=== PATIENT | female | born 1945 | race Caucasian/White ===

== ENCOUNTER → 2023-08-03 10:18 | Outpatient (REF) | payer MEDICARE, OTHER, SELFPAY ==
[2023-08-03 12:02] LABS: % Basophils 0.6 % (0-2); % Eosinophils 3.3 % (0-6); % Immature Granulocytes 0.2 % (0-0.5); % Monocytes 8.9 % (1.7-9.3); Absolute Eosinophils 0.2 10^3/uL (0-0.7); Absolute Lymphocytes 0.9 10^3/uL (1.2-3.4); Absolute Monocytes 0.6 10^3/uL (0.1-0.6); Absolute Neutrophils 4.6 10^3/uL (1.4-6.5); Hematocrit 42.8 % (37.0-47.0); Hemoglobin 13.8 g/dL (12.0-16.0); Mean Corp Hgb Conc. 32.2 g/dL (33.0-37.0); Mean Corpuscular Hgb 30.3 pg (27.0-31.0); Mean Corpuscular Volume 94.1 fL (81.0-99.0); Nucleated Red Blood Cells % 0 %; Platelet Count 230 10^3/uL (130-400); Red Blood Cell Count 4.55 10^6/uL (4.20-5.40); Red Cell Dist. Width 13.2 % (11.5-14.5); White Blood Cell Count 6.3 10^3/uL (4.8-10.8)
[2023-08-03 12:27] LABS: ALT (SGPT) 25 U/L (0-35); AST (SGOT) 23 U/L (14-36); Albumin 4.4 g/dl (3.5-5.0); Alkaline Phosphatase 109 U/L (38-126); Blood Urea Nitrogen 30 mg/dl (7-17); Calcium 9.5 mg/dl (8.4-10.2); Carbon Dioxide 31 mmol/L (22-30); Chloride 101 mmol/L (98-107); Glucose 87 mg/dl (70-99); HDL Cholesterol 92 mg/dl; LDL Cholesterol, Calculated 44 mg/dl; Potassium 4.6 mmol/L (3.5-5.1); Sodium 140 mmol/L (135-145); Total Bilirubin 0.6 mg/dl (0.2-1.3); Total Cholesterol 155 mg/dl (50-199); Total Protein 6.8 g/dl (6.3-8.2); Triglyceride 98 mg/dl (10-149); Very Low Density Lipoprotein 19 mg/dl (0-30); eGFR > 60.00
[2023-08-03 12:57] LABS: TSH 3.39 uIU/ml (0.47-4.68)
== END ==
LOC: HWLAB 10:18
PROVIDERS: ATTENDING PHYSICIAN Internal Medicine; REFERRING PHYSICIAN Urology
DX: I10 Essential (primary) hypertension (principal); E78.5 Hyperlipidemia, unspecified; R53.83 Other fatigue
CPT/HCPCS: 36415; 80053; 80061; 84443; 85025

== ENCOUNTER 2023-08-27 06:50 | Day surgery (SDC) | payer MEDICARE, OTHER, SELFPAY ==
[2023-08-27] VITALS (7 sets, daily range): BP systolic 12–137; BP diastolic 51–85
[2023-08-27 08:55] LABS: Urine Albumin Negative (Neg - Trace); Urine Bilirubin Negative (Negative); Urine Character Clear (Clear); Urine Color Yellow; Urine Glucose Negative (Negative); Urine Ketone Negative (Negative); Urine Leukocyte Trace (Negative); Urine Nitrite Negative (Negative); Urine Occult Blood Negative (Negative); Urine Specific Gravity 1.015 (<1.030); Urine Urobilinogen Negative (Neg - 1+)
[2023-08-27] MEDS: NORMOSOL-R 1000 IV (09:02)
[2023-08-27] MEDS: TYLENOL 1000 MG PO (09:02)
[2023-08-27 09:04] LABS: APTT 31.7 Sec (23.4-35.0); INR 1.08; PT 13.8 Sec (11.4-14.6)
[2023-08-27 09:19] LABS: Urine Amorphous Seen; Urine Granular Cast 0-2 /LPF (0); Urine Hyaline Cast 0-2 /LPF (0-2); Urine Mucus Many; Urine Squamous Cell >30 /LPF (Few)
[2023-08-27 09:22] LABS: Urine Red Blood Cell 0-2 /HPF (0-2)
== END 2023-08-27 12:32 | disposition home or self-care (01) ==
LOC: SDS 06:50
PROVIDERS: ATTENDING PHYSICIAN Urology
DX: T83.190A Other mechanical complication of urinary electronic stimulator device, initial encounter (principal); N39.41 Urge incontinence; Y83.1 Surgical operation with implant of artificial internal device as the cause of abnormal reaction of the patient, or of later complication, without mention of misadventure at the time of the procedure
CPT/HCPCS: 64590; 64561; 72170; 76000; 81003; 81015; 85610; 85730; 87086; 93005; C1767; C1778; C1787; L8681

== ENCOUNTER 2024-08-07 02:25 | Emergency (ER) | payer MEDICARE, OTHER, SELFPAY ==
[2024-08-07 02:29] VITALS: BP 130/56; BMI 33.0
[2024-08-07] MEDS: MOTRIN 400 MG PO (02:45)
--- NOTE | 2024-08-07 02:52 | ED.GENMED ---
History of Present Illness
General
Chief Complaint: Musculo-Skeletal Complaint
Source: patient and ambulance crew
Exam Limitations: none
Time Seen by Provider: 08/07/24 02:33
Nursing documentation reviewed up to this point in time: agreed with
History of Present Illness
History of Present Illness:
79-year-old female with history as documented presents to the ER for evaluation of left foot pain. Patient reports that she was moving a heavy bottle of laundry detergent from a shelf when it fell off onto her left foot. She says that she
immediately started to have swelling and pain in the left foot. Has had difficulty bearing weight which prompted her to call EMS to bring her to the hospital. She normally ambulates with a walker but she does have access to a wheelchair at home.
She denies any other injuries or complaints. Denies being on blood thinners. She did take Tylenol without improvement.
Past History
Past History
ED Past Medical History: GERD, HTN, Hypercholesterolemia and Other (Lumbar fracture)
ED Past Surgical History: Brain, Orthopedic and Tonsilectomy
Social History
Tobacco: Non-smoker
Alcohol: None
Drug: None
Living: alone
Review of Systems
Review of Systems
All Other Systems: ROS reviewed and negative except as documented in HPI and ROS
Musculoskeletal: Reports other (Foot pain)
Phy Exam
Physical Exam
Physical Exam:
General: Well appearing and non-toxic
HEENT: protecting airway
Neck: appears supple
CV: No evidence of cyanosis
Resp: No accessory muscle use
Abd: Non-distended
Extremities: Patient has swelling and bruising to the dorsum of the left foot as well as a minor abrasion on the dorsum of the foot; she has tenderness along the entire dorsum of the left foot; no tenderness along the fifth metatarsal, no tenderness
of the instep or calcaneus; no tenderness of the medial or lateral malleolus and reasonable range of motion of the left ankle; no tenderness in the calf or knee on the left; strong left DP pulse and PT pulse palpable
Neuro: Alert
Psych: Normal affect
Scores
Heart Failure Risk
Heart Failure Risk Score: Not Applicable
Heart Score for Chest Pain Patients
STEMI patient?: Not applicable
Withdrawal Assessment of Alcohol
Withdrawal Assessment Completed?: Not applicable
Course
Orders/Labs/Results
Orders:
Orders
08/07/24 02:33
Ice Pack-Treatment DIRECTED
Location: left foot
Ibuprofen [Motrin] 400 mg PO NOW STA
CR Foot - Left Min 3 Views Urgent
Comment:
Reason For Exam: midfoot pain s/p direct blow
08/07/24 02:50
Phillip Wrap Left-Treatment ONCE
Vital Signs
Initial and Last Documented VS:
Initial Vital Signs
Temp Pulse Resp BP Pulse Ox
36.7 C 88 16 130/56 99
08/07/24 02:29 08/07/24 02:29 08/07/24 02:29 08/07/24 02:29 08/07/24 02:29
Last Documented Vital Signs
Temp Pulse Resp BP Pulse Ox
36.7 C 88 16 130/56 99
08/07/24 02:29 08/07/24 02:29 08/07/24 02:29 08/07/24 02:29 08/07/24 02:29
MDM/Problems Addressed
Differential Diagnosis Includes:
Contusion, fracture
MDM/Problems Addressed:
79-year-old female presents for evaluation after dropping a bottle of laundry detergent on her left foot. She has pain and swelling and pain with weightbearing. Vitals and exam as above. X-ray of the foot reviewed by me shows no acute fracture.
Suspect likely foot contusion. Apply compression wrap, ice. Treat with Motrin. Trial ambulation and reassess.
*Radiology
Radiology exam reviewed: preliminary read by ED provider
*Pulse Oximetry
Patient hypoxic: no
*Critical Care Note
Total Time (30-74mins, 75-104mins- exclusive of procedures): Not Applicable
Data Reviewed
Source: patient and ambulance crew
ED Attending Note
-
Portions of this chart may have been created with voice recognition software.� Occasional wrong word or��sound alike� substitutions may have occurred due to the inherent limitations of voice recognition software.
Discharge Plan
Departure
Patient with high blood pressure during this ER visit?: No
Discharge Problem:
Contusion of foot, left
Instructions: Contusion
Prescriptions:
No Action
sertraline 100 MG tablet
200 mg PO DAILY
levothyroxine 50 MCG tablet
75 mcg PO DAILY AT 0700
losartan [Cozaar] 100 MG tablet
100 mg PO DAILY
atorvastatin [Lipitor] 10 MG tablet
10 mg PO DAILY
bupropion HCl 300 MG tablet extended release 24 hr
300 mg PO DAILY
cholecalciferol (vitamin D3) 1,000 UNITS tablet
1,000 units PO DAILY
omeprazole 40 MG capsule,delayed release(DR/EC)
20 mg PO HS
ropinirole 0.25 MG tablet
0.25 mg PO HS
multivitamin with folic acid [Tab-A-Emerita] 1 TABLET tablet
1 tab PO HS
Myrbetriq 25 MG tablet extended release 24 hr
50 mg PO HS
hydralazine 50 mg Tablet
50 mg PO BID
buspirone [BuSpar] 15 mg Tablet
15 mg PO BID
amlodipine 5 mg Tablet
5 mg PO DAILY
omeprazole 20 mg Capsule,Delayed Release(Dr/Ec)
20 mg PO DAILY
Referrals:
Agustin Amaya DPM [Active] - As needed (Foot doctor--please see as needed if symptoms not improving with conservative measures we discussed)
Activity Restrictions/Additional Instructions:
Thank you for visiting the Emergency Department at [facility].
1. Please schedule a follow up appointment as directed. Call first thing tomorrow morning to make an appointment.
2. If indicated, please take your medications as instructed and indicated on discharge paperwork.
3. If any of your symptoms do not improve, or persist, or become more severe within 6-12 hours, please return to the emergency department for further care.
4. Please return to the emergency department if you develop a headache, neck pain/stiffness, fever greater than 100.4F, chest pain, shortness of breath, persistent nausea, vomiting, slurred speech, difficulty walking, numbness/tingling, weakness,
signs of infection or any other symptoms that are worrisome to you.
Please call [phone] if you have any questions.
Interventions
Interventions:
*Risk Screen - Suicide Last Done: 08/07/24 02:29
*General Assessment Last Done: 08/07/24 02:29
*Neglect/Abuse Screening Last Done: 08/07/24 02:29
*ED COVID-19 Vaccine History Last Done: 08/07/24 02:29
ED-Musculoskeletal Assessment Last Done: 08/07/24 02:33
Discharge Date and Time
Print Language: CITIZEN [place]
== END 2024-08-07 04:44 | disposition home or self-care (01) ==
LOC: EMR 02:25
PROVIDERS: EMERGENCY PHYSICIAN Emergency Medicine
DX: S90.32XA Contusion of left foot, initial encounter (principal); W20.8XXA Other cause of strike by thrown, projected or falling object, initial encounter; I10 Essential (primary) hypertension; E78.00 Pure hypercholesterolemia, unspecified
CPT/HCPCS: 99283; 73630

== ENCOUNTER 2024-08-14 13:17 | Emergency (ER) | payer MEDICARE, OTHER, SELFPAY ==
[2024-08-14 13:21] VITALS: BP 155/67
--- NOTE | 2024-08-14 13:40 | ED.MUSCINJ ---
HPI-Injury
General
Chief Complaint: Musculo-Skeletal Complaint
Source: patient
Exam Limitations: none
Time Seen by Provider: 08/14/24 13:32
History of Present Illness-Injury
Initial Injury comments:
79-year-old female presents with increased swelling and redness to left foot. She was seen here last week after heavy bottle of 100 detergent fell on top of her foot. She had a contusion to her foot. She was using an Phillip bandage and ice and has
noticed progressive worsening swelling and redness to the dorsum of the foot. She is not a diabetic. She denies fevers chills or vomiting. She lives at home by herself. She does have help that comes twice a week. No other complaints at this time
Past History
Past History
ED Past Medical History: GERD, HTN, Hypercholesterolemia and Other (Lumbar fracture)
ED Past Surgical History: Brain, Orthopedic and Tonsilectomy
Social History
Tobacco: Non-smoker
Alcohol: None
Drug: None
Living: alone
Phy Exam
Physical Exam
Physical Exam:
General: Well-appearing female no acute respiratory distress
HEENT: Normocephalic atraumatic
Skin: Abrasion noted to the dorsal lateral aspect of the left foot surrounded by erythema and soft tissue swelling. There is no lymphangitic streaking. There is no underlying fluctuance or drainage.
Vascular: 2+ DP pulse left foot compartments are soft
Neurologic: Good sensation left foot
Injury Course
Orders/Labs/Results
Orders:
Orders
08/14/24 13:40
Cephalexin Monohydrate [Keflex] 500 mg PO NOW STA
MDM/Problems Addressed
Differential Diagnosis Includes:
Increased swelling and discomfort left foot. Suspect early cellulitis of the dorsum of left foot. No abscess to drain. She is not a diabetic vital signs are stable no lymphangitic streaking no vomiting. Will try to fit her for a boot to help her
ambulate and start her on Ceftin for cellulitis.
*Critical Care Note
Total Time (30-74mins, 75-104mins- exclusive of procedures): Not Applicable
ED Attending Note
-
Portions of this chart may have been created with voice recognition software.� Occasional wrong word or��sound alike� substitutions may have occurred due to the inherent limitations of voice recognition software.
Discharge Plan
Departure
Patient Disposition: Home (Routine Discharge)
Date of Disposition: 08/14/24
Time of Disposition: 13:43
Patient with high blood pressure during this ER visit?: No
Discharge Problem:
Cellulitis
Instructions: Cellulitis (skin infection) in adults - Discharge instructions
Prescriptions:
New
cephalexin 500 mg capsule
500 mg PO Q8H 7 Days Qty: 21 0RF
No Action
sertraline 100 MG tablet
200 mg PO DAILY
levothyroxine 50 MCG tablet
75 mcg PO DAILY AT 0700
losartan [Cozaar] 100 MG tablet
100 mg PO DAILY
atorvastatin [Lipitor] 10 MG tablet
10 mg PO DAILY
bupropion HCl 300 MG tablet extended release 24 hr
300 mg PO DAILY
cholecalciferol (vitamin D3) 1,000 UNITS tablet
1,000 units PO DAILY
omeprazole 40 MG capsule,delayed release(DR/EC)
20 mg PO HS
ropinirole 0.25 MG tablet
0.25 mg PO HS
multivitamin with folic acid [Tab-A-Emerita] 1 TABLET tablet
1 tab PO HS
Myrbetriq 25 MG tablet extended release 24 hr
50 mg PO HS
hydralazine 50 mg Tablet
50 mg PO BID
buspirone [BuSpar] 15 mg Tablet
15 mg PO BID
amlodipine 5 mg Tablet
5 mg PO DAILY
omeprazole 20 mg Capsule,Delayed Release(Dr/Ec)
20 mg PO DAILY
Activity Restrictions/Additional Instructions:
Elevate for swelling. Use warm compresses to the area. Use antibiotic as directed. Return here for increasing redness swelling pain fever or vomiting otherwise follow-up with your family doctor
Interventions
Interventions:
*Risk Screen - Suicide Last Done: 08/14/24 13:21
*Neglect/Abuse Screening Last Done: 08/14/24 13:21
*ED COVID-19 Vaccine History Last Done: 08/14/24 13:21
Discharge Date and Time
Print Language: [place]
[2024-08-14] MEDS: KEFLEX 500 MG PO (14:02)
--- NOTE | 2024-08-14 15:51 | EDRN ---
Reviewed discharge instructions with patient. Verbalized understanding.
[2024-08-14 15:53] VITALS: BP 162/88
== END 2024-08-14 15:54 | disposition home or self-care (01) ==
LOC: EMR 13:17
PROVIDERS: EMERGENCY PHYSICIAN Student in an Organized Health Care Education/Training Program; FAMILY PHYSICIAN Internal Medicine
DX: L03.116 Cellulitis of left lower limb (principal); E78.00 Pure hypercholesterolemia, unspecified; I10 Essential (primary) hypertension
CPT/HCPCS: 99283

== ENCOUNTER → 2025-03-24 11:52 | Outpatient (REF) | payer MEDICARE, OTHER, SELFPAY | LOC: HWWDC 11:52 | PROVIDERS: ATTENDING PHYSICIAN Obstetrics & Gynecology Gynecology; FAMILY PHYSICIAN Internal Medicine | DX: Z12.31 Encounter for screening mammogram for malignant neoplasm of breast (principal) | CPT/HCPCS: 77063; 77067 ==

== ENCOUNTER → 2025-05-12 08:39 | Outpatient (REF) | payer MEDICARE, OTHER, SELFPAY | LOC: WDC 08:39 | PROVIDERS: ATTENDING PHYSICIAN Obstetrics & Gynecology Gynecology; FAMILY PHYSICIAN Internal Medicine | DX: R92.8 Other abnormal and inconclusive findings on diagnostic imaging of breast (principal) | CPT/HCPCS: 76642 ==